=== PATIENT | female | born 1970 | race Caucasian/White ===

== ENCOUNTER 2021-03-07 14:32 | Emergency (ER) | payer OTHER ==
[~2021-03-07] VITALS: Ht 162.6 cm; Wt 97.5 kg
[2021-03-07] MEDS ORDERED: ERYTHROMYCIN E3.5 G2 OPHTHALMIC (15:32)
[2021-03-07] MEDS ORDERED: CIPROFLOXIN HC2.5 M1 OPHTHALMIC (15:32)
[2021-03-07 16:16] VITALS: BP 157/87
== END 2021-03-07 16:15 | disposition home or self-care (01) ==
LOC: ER 14:32
DX: H20.9 Unspecified iridocyclitis (principal); J45.909 Unspecified asthma, uncomplicated; Z86.16 Personal history of COVID-19; Z88.6 Allergy status to analgesic agent; Z91.041 Radiographic dye allergy status; Z91.040 Latex allergy status; Z88.5 Allergy status to narcotic agent; Z91.013 Allergy to seafood; Z88.7 Allergy status to serum and vaccine; Z91.09 Other allergy status, other than to drugs and biological substances

== ENCOUNTER → 2021-03-10 | Outpatient (CLI) | payer OTHER ==
[~2021-03-10] MED LIST: CIPROFLOXIN HC2.5 M1 OPHTHALMIC; ERYTHROMYCIN E3.5 G2 OPHTHALMIC
== END ==
LOC: MRI 07:18
DX: N60.02 Solitary cyst of left breast (principal); N60.01 Solitary cyst of right breast; N64.4 Mastodynia